=== PATIENT | female | born 1980 | race African-American/Black ===

== ENCOUNTER 2019-01-21 05:24 | Emergency (ER) | payer SELFPAY ==
[2019-01-21 06:17] LABS: Barbiturates NEGATIVE (NEGATIVE); Benzodiazepines NEGATIVE (NEGATIVE); Cocaine NEGATIVE (NEGATIVE); METHAMPHETAM POSITIVE (NEGATIVE); Methadone NEGATIVE (NEGATIVE); Opiates NEGATIVE (NEGATIVE); Phencyclidine NEGATIVE (NEGATIVE); THC Cannibis NEGATIVE (NEGATIVE)
[2019-01-21 06:18] LABS: Absolute Lymphocytes (CBC) 0.9 K/uL (0.7-4.9); Absolute Monocytes 0.3 K/uL (0.1-1.3); Absolute Neutrophil 2.3 K/uL (1.8-8.0); Hematocrit 49.4 % (36.0-45.0); Lymphocytes % 24.1 % (15.3-44.8); MPV 9.8 fL (7.6-11.3); Monocytes % 8.5 % (3.3-12.3)
[2019-01-21 06:24] LABS: Protime INR 0.98
[2019-01-21] MEDS ORDERED: FAMOTIDINE 20 MG/2 ML VIAL IV ONE (06:36)
[2019-01-21] MEDS ORDERED: CEFTRIAXONE/SWI 1gm 1 GM/10 ML SYR ONE (06:36)
[2019-01-21] MEDS ORDERED: LIDOCAINE VISCOUS 2% SOLN 15 ML UDC ONE (06:36)
[2019-01-21] MEDS ORDERED: MAGNE/ALUM HYDROXD 30 ML UCUP ONE (06:36)
[2019-01-21] MEDS ORDERED: ONDANSETRON 4 MG/2 ML VIAL ONE (06:36)
[2019-01-21] MEDS ORDERED: NA CHLORIDE 0.9% 1,000 ML ONE (06:37)
[2019-01-21 06:39] LABS: ALT/SGPT 72 U/L (12-78); AST/SGOT 70 U/L (15-37); Albumin 4.2 g/dL (3.4-5.0); Alkaline Phosphatase 86 U/L (45-117); BUN Blood Urea Nitrogen 5 mg/dL (7-18); Bicarbonate 29 mmol/L (21-32); Bilirubin Direct 0.1 mg/dL (0-0.2); Bilirubin Total 0.9 mg/dL (0.2-1.0); Glucose Level 121 mg/dL (74-106); Potassium 3.7 mmol/L (3.5-5.1); Protein, Total 8.6 g/dL (6.4-8.2); Sodium Level 139 mmol/L (136-145)
--- NOTE | 2019-01-21 06:55 | EDPHYS ---
Physician Documentation [facility] Name: Pam lEdridge Age: 38 yrs Sex: Female : 1980 Arrival Date: 01/21/2019 Time: 05:25 Bed 7 Private MD: ED Physician Bobby Forbes HPI: 01/21 06:08 This 38 yrs old Black Female presents to ER via Ambulatory with complaints of Took orestes Unknown Pill. 06:08 The patient presents with abdominal pain abdominal distention. Onset: The orestes symptoms/episode began/occurred last night. The patient presents to the emergency department with nausea, vomiting, abdominal pain, of the epigastric area. Onset: The symptoms/episode began/occurred yesterday. Possible causes: unknown. The symptoms do not radiate. Associated signs and symptoms: Pertinent positives: nausea, vomiting. 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 - Social history:: Smoking status: Patient uses tobacco products, smokes one-half pack cigarettes per day. - Ebola Screening: : No symptoms or risks identified at this time. - Family history:: not pertinent. ROS: 06:08 Constitutional: Negative for fever, chills, and weight loss, Eyes: Negative for injury, orestes pain, redness, and discharge, ENT: Negative for injury, pain, and discharge, Neck: Negative for injury, pain, and swelling, Cardiovascular: Negative for chest pain, palpitations, and edema, Respiratory: Negative for shortness of breath, cough, wheezing, and pleuritic chest pain, Back: Negative for injury and pain, : Negative for injury, bleeding, discharge, and swelling, MS/Extremity: Negative for injury and deformity, Skin: Negative for injury, rash, and discoloration, Neuro: Negative for headache, weakness, numbness, tingling, and seizure. 06:08 Abdomen/GI: Positive for abdominal pain, of the epigastric area. Exam: 06:08 Constitutional: This is a well developed, well nourished patient who is awake, alert, orestes and in no acute distress. Head/Face: Normocephalic, atraumatic. Eyes: Pupils equal round and reactive to light, extra-ocular motions intact. Lids and lashes normal. Conjunctiva and sclera are non-icteric and not injected. Cornea within normal limits. Periorbital areas with no swelling, redness, or edema. ENT: Nares patent. No nasal discharge, no septal abnormalities noted. Tympanic membranes are normal and external auditory canals are clear. Oropharynx with no redness, swelling, or masses, exudates, or evidence of obstruction, uvula midline. Mucous membranes moist. Neck: Trachea midline, no thyromegaly or masses palpated, and no cervical lymphadenopathy. Supple, full range of motion without nuchal rigidity, or vertebral point tenderness. No Meningismus. Chest/axilla: Normal chest wall appearance and motion. Nontender with no deformity. No lesions are appreciated. Respiratory: Lungs have equal breath sounds bilaterally, clear to auscultation and percussion. No rales, rhonchi or wheezes noted. No increased work of breathing, no retractions or nasal flaring. Abdomen/GI: Soft, non-tender, with normal bowel sounds. No distension or tympany. No guarding or rebound. No evidence of tenderness throughout. Back: No spinal tenderness. No costovertebral tenderness. Full range of motion. Pelvic Exam: Normal external genitalia. Speculum exam with closed cervical os, no discharge or bleeding noted. Bimanual exam with normal adnexa, no adnexal or cervical motion tenderness. Normal uterus. Female : Normal external genitalia. Skin: Warm, dry with normal turgor. Normal color with no rashes, no lesions, and no evidence of cellulitis. MS/ Extremity: Pulses equal, no cyanosis. Neurovascular intact. Full, normal range of motion. Neuro: Awake and alert, GCS 15, oriented to person, place, time, and situation. Cranial nerves II-XII grossly intact. Motor strength 5/5 in all extremities. Sensory grossly intact. Cerebellar exam normal. Normal gait. Psych: Awake, alert, with orientation to person, place and time. Behavior, mood, and affect are within normal limits. 06:08 Cardiovascular: Rate: Vital Signs: 05:40 BP 145 / 99; Pulse 108; Resp 16; Temp 97.7; Pulse Ox 100% on R/A; Weight 84.37 kg; aa1 Height 5 ft. 3 in. (160.02 cm); Pain 0/10; 05:40 Body Mass Index 32.95 (84.37 kg, 160.02 cm) aa1 MDM: 05:33 Patient medically screened. [facility] 06:11 Data reviewed: vital signs, nurses notes, lab test result(s), finger stick glucose, [facility] amylase and lipase, electrolytes, Flu: hepatic panel, urinalysis, urine drug screen, EKG, radiologic studies. 01/21 05:35 Order name: Acetaminophen; Complete Time: 06:50 [facility] 01/21 05:35 Order name: Basic Metabolic Panel; Complete Time: 06:50 [facility] 01/21 05:35 Order name: CBC with Diff; Complete Time: 06:50 [facility] 01/21 05:35 Order name: ETOH Level; Complete Time: 06:50 [facility] 01/21 05:35 Order name: Hepatic Function; Complete Time: 06:50 [facility] 01/21 05:35 Order name: PT-INR; Complete Time: 06:50 [facility] 01/21 05:35 Order name: Ptt, Activated; Complete Time: 06:50 [facility] 01/21 05:35 Order name: Salicylate; Complete Time: 06:50 [facility] 01/21 05:35 Order name: Urine Drug Screen; Complete Time: 06:30 [facility] 01/21 05:50 Order name: Urine Culture [facility] 01/21 05:51 Order name: Urine Dipstick--Ancillary (enter results) [facility] 01/21 05:51 Order name: Urine --Ancillary (enter results) [facility] 01/21 05:35 Order name: Urine Test (obtain specimen); Complete Time: 06:10 [facility] 01/21 05:35 Order name: EKG; Complete Time: 05:35 [facility] 01/21 05:35 Order name: EKG - Nurse/Tech; Complete Time: 06:32 [facility] 01/21 05:35 Order name: IV Saline Lock; Complete Time: 06:32 [facility] 01/21 05:35 Order name: Labs collected and sent; Complete Time: 06:33 [facility] 01/21 05:35 Order name: Urine Dipstick-Ancillary (obtain specimen); Complete Time: 06:10 [facility] Administered Medications: 06:31 Drug: Zofran 4 mg Route: IVP; Site: right hand; ak1 06:58 Follow up: Response: No adverse reaction ak1 06:31 Drug: GI Cocktail without - (Maalox Suspension 30 ml, Lidocaine Liquid 2 % 15 ak1 ml) Route: PO; 06:59 Follow up: Response: No adverse reaction ak1 06:32 Drug: NS 0.9% 1000 ml Route: IV; Rate: 1 bolus; Site: right hand; ak1 07:42 Follow up: IV Status: Completed infusion; IV Intake: 1000ml bp 06:32 Drug: Rocephin 1 grams Route: IV; Rate: per protocol; Site: right hand; ak1 07:00 Follow up: IV Status: Completed infusion; IV Intake: 20ml bp 06:32 Drug: Pepcid 20 mg Route: IVP; Site: right hand; ak1 06:57 Follow up: Response: No adverse reaction ak1 Disposition: 01/21/19 06:54 Discharged to Home. Impression: Vomiting, Adverse effect of amphetamines, Urinary tract infection, site not specified. - Condition is Stable. - Discharge Instructions: Stimulant Use Disorder-Amphetamines, Dysuria, Nausea and Vomiting, Adult, Nausea and Vomiting, Adult, [id number], Stimulant Use Disorder-Methamphetamines. - Prescriptions for Pepcid 20 mg Oral Tablet - take 1 tablet by ORAL route every 12 hours for 10 days; 20 tablet. Zofran 4 mg Oral Tablet - take 1 tablet by ORAL route every 12 hours As needed; 20 tablet. Bactrim DS 800- 160 mg Oral Tablet - take 1 tablet by ORAL route every 12 hours for 7 days; 14 tablet. - Medication Reconciliation Form, Thank You Letter, Antibiotic Education, Prescription Opioid Use form. - Follow up: Private Physician; When: 2 - 3 days; Reason: Recheck today's complaints, Continuance of care, Re-evaluation by your physician. - Problem is new. - Symptoms have improved. Signatures: Dispatcher [employer] EDMichelle Ba RN RN aa1 Bobby Forbes MD MD cha Krenek, Amber RN RN ak1 Martín Mendez RN RN bp Corrections: (The following items were deleted from the chart) 06:55 06:54 01/21/2019 06:54 Discharged to Home. Impression: Vomiting; Adverse effect of orestes amphetamines. Condition is Stable. Discharge Instructions: Stimulant Use Disorder-Amphetamines, Nausea and Vomiting, Adult, Nausea and Vomiting, Adult, [id number], Stimulant Use Disorder-Methamphetamines. Prescriptions for Pepcid 20 mg Oral Tablet - take 1 tablet by ORAL route every 12 hours for 10 days; 20 tablet, Zofran 4 mg Oral Tablet - take 1 tablet by ORAL route every 12 hours As needed; 20 tablet. and Forms are Medication Reconciliation Form, Thank You Letter, Antibiotic Education, Prescription Opioid Use. Follow up: Private Physician; When: 2 - 3 days; Reason: Recheck today's complaints, Continuance of care, Re-evaluation by your physician. Problem is new. Symptoms have improved. [facility] 07:43 06:55 01/21/2019 06:54 Discharged to Home. Impression: Vomiting; Adverse effect of bp amphetamines; Urinary tract infection, site not specified. Condition is Stable. Discharge Instructions: Stimulant Use Disorder-Amphetamines, Nausea and Vomiting, Adult, Nausea and Vomiting, Adult, [id number], Stimulant Use Disorder-Methamphetamines. Prescriptions for Pepcid 20 mg Oral Tablet - take 1 tablet by ORAL route every 12 hours for 10 days; 20 tablet, Zofran 4 mg Oral Tablet - take 1 tablet by ORAL route every 12 hours As needed; 20 tablet. and Forms are Medication Reconciliation Form, Thank You Letter, Antibiotic Education, Prescription Opioid Use. Follow up: Private Physician; When: 2 - 3 days; Reason: Recheck today's complaints, Continuance of care, Re-evaluation by your physician. Problem is new. Symptoms have improved. [facility]
--- NOTE | 2019-01-21 06:55 | ER ---
Nurse's Notes [facility] Name: Pam Eldridge Age: 38 yrs Sex: Female : 1980 Arrival Date: 01/21/2019 Time: 05:25 Bed 7 Private MD: Diagnosis: Vomiting;Adverse effect of amphetamines;Urinary tract infection, site not specified Presentation: 01/21 05:35 Presenting complaint: Patient states: she was out last night and met some people and aa1 they gave her an unknown pill that she took to get high. Reports the pill was a green capsule and she took 1 capsule at approx 2200 last night and now she feels shaky. Transition of care: patient was not received from another setting of care. Onset of symptoms was January 20, 2019 at 22:00. Risk Assessment: Do you want to hurt yourself or someone else? Patient reports no desire to harm self or others. Initial Sepsis Screen: Does the patient meet any 2 criteria? No. Patient's initial sepsis screen is negative. Does the patient have a suspected source of infection? No. Patient's initial sepsis screen is negative. Care prior to arrival: None. 05:35 Method Of Arrival: Ambulatory aa1 05:35 Acuity: ALEKSANDER 3 aa1 Triage Assessment: 05:40 General: Appears in no apparent distress. comfortable, Behavior is calm, cooperative, aa1 appropriate for age. Pain: Denies pain. 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 - Social history:: Smoking status: Patient uses tobacco products, smokes one-half pack cigarettes per day. - Ebola Screening: : No symptoms or risks identified at this time. - Family history:: not pertinent. Screenin:00 Abuse screen: Denies threats or abuse. Denies injuries from another. Nutritional ak1 screening: No deficits noted. Tuberculosis screening: No symptoms or risk factors identified. Fall Risk None identified. Assessment: 07:01 General: Appears in no apparent distress. Behavior is anxious. Pain: Denies pain. ak1 Neuro: No deficits noted. Cardiovascular: No deficits noted. Respiratory: No deficits noted. GI: Abdomen is round non-distended, Bowel sounds present X 4 quads. Abd is soft and non tender X 4 quads. Parent/caregiver reports the patient having vomiting. : No signs and/or symptoms were reported regarding the genitourinary system. EENT: No signs and/or symptoms were reported regarding the EENT system. Derm: No signs and/or symptoms reported regarding the dermatologic system. Musculoskeletal: No signs and/or symptoms reported regarding the musculoskeletal system. 07:10 Reassessment: RECD REPORT FROM ALIS COLON. 38YO BF P/W INGESTION OF UNKNOWN DRUG FOR bp RECREATIONAL PURPOSES. D/C ON HOLD FOR IVF INFUSION. 07:38 Reassessment: PT D/C HOME AMBULATORY WITH FAMILY, DX WITH VOMITING AND ADVERSE REACTION bp TO METHAMPHETAMINE. Vital Signs: 05:40 BP 145 / 99; Pulse 108; Resp 16; Temp 97.7; Pulse Ox 100% on R/A; Weight 84.37 kg; aa1 Height 5 ft. 3 in. (160.02 cm); Pain 0/10; 05:40 Body Mass Index 32.95 (84.37 kg, 160.02 cm) aa1 ED Course: 05:25 Patient arrived in ED. ds1 05:33 Bobby Forbes MD is Attending Physician. orestes 05:37 Alis Rogers, RN is Primary Nurse. ak1 05:39 Triage completed. aa1 05:40 Arm band placed on right wrist. aa1 06:23 EKG done, by ED staff, reviewed by Bobby Forbes MD. Missed attempt(s): 20 gauge in ag4 right antecubital area. Missed attempt(s): 22 gauge in right antecubital area. Inserted richy blood 22G using aseptic technique labs sent. 07:00 Patient has correct armband on for positive identification. Bed in low position. Call ak1 light in reach. Side rails up X 1. social media manager on. Pulse ox on. NIBP on. 07:39 No provider procedures requiring assistance completed. IV discontinued, intact, bp bleeding controlled, No redness/swelling at site. Pressure dressing applied. Administered Medications: 06:31 Drug: Zofran 4 mg Route: IVP; Site: right hand; ak1 06:58 Follow up: Response: No adverse reaction ak1 06:31 Drug: GI Cocktail without - (Maalox Suspension 30 ml, Lidocaine Liquid 2 % 15 ak1 ml) Route: PO; 06:59 Follow up: Response: No adverse reaction ak1 06:32 Drug: NS 0.9% 1000 ml Route: IV; Rate: 1 bolus; Site: right hand; ak1 07:42 Follow up: IV Status: Completed infusion; IV Intake: 1000ml bp 06:32 Drug: Rocephin 1 grams Route: IV; Rate: per protocol; Site: right hand; ak1 07:00 Follow up: IV Status: Completed infusion; IV Intake: 20ml bp 06:32 Drug: Pepcid 20 mg Route: IVP; Site: right hand; ak1 06:57 Follow up: Response: No adverse reaction ak1 Intake: 07:00 IV: 20ml; Total: 20ml. bp 07:42 IV: 1000ml; Total: 1020ml. bp Outcome: 06:54 Discharge ordered by . orestes 07:40 Discharged to home ambulatory, with family. bp 07:40 Condition: stable 07:40 Discharge instructions given to patient, Instructed on discharge instructions, follow up and referral plans. medication usage, Demonstrated understanding of instructions, follow-up care, medications, Prescriptions given X 3. 07:43 Patient left the ED. bp Signatures: Michelle Trimble, RN RN Bobby Nettles MD MD cha Sanford, Demi ds1 Alis Rogers RN RN ak1 Martín Mendez RN RN Gurwinder Loya ag4
[2019-01-21] MEDS ORDERED: AMOX/K CLAV 875 MG TAB ONE (07:36)
[2019-01-21 09:08] LABS: Urine Blood 2+ (NEG); Urine Glucose NEGATIVE (NEG); Urine Protein 1+ (NEG); Urine pH 8.5 (5.0-7.0)
--- NOTE | 2019-01-22 07:09 | EKG ---
Test Date: 2019-01-21 Test Time: 06:16:04 Chemical Engineering Teacher: AG3 MEASUREMENT RESULTS: Intervals: Rate: 93 FL: 146 QRSD: 64 QT: 338 QTc: 420 [place]: P: 77 FL: 146 QRS: 71 T: 72 INTERPRETIVE STATEMENTS: Normal sinus rhythm with sinus arrhythmia Normal ECG No previous ECG available for comparison Electronically Signed On 01-22-19 07:08:58 CDT by David Lynn
== END 2019-01-21 07:43 | disposition home or self-care (01) ==
LOC: ER 05:24
DX: N39.0 Urinary tract infection, site not specified (principal); T43.625A Adverse effect of amphetamines, initial encounter; I10 Essential (primary) hypertension; F17.210 Nicotine dependence, cigarettes, uncomplicated
CPT/HCPCS: 36415; 80048; 80076; 80307; 80320; 80329; 81003; 81025; 85025; 85610; 85730; 87086; 87088; 93005; J0696; J2405; J7030